=== PATIENT | male | born 1950 | race Caucasian/White ===

== ENCOUNTER → 2023-01-01 | Outpatient (CLI) | payer MEDICARE, OTHER, SELFPAY ==
--- NOTE | 2023-01-01 16:01 | US_ITS ---
EXAM: US ABDOMEN COMPLETE CLINICAL INDICATION: URINARY FREQUENCY TECHNIQUE: Real-time ultrasound of the abdomen with image documentation. This report was created using [employer] report generation technology. COMPARISON: None. FINDINGS: Bladder is incompletely distended measuring 75 mL with a post void residual of 7 mL. Bladder wall is top normal measuring 5 mm in the decompressed state. No intraluminal masses. No calculi. No gaspar catheter in place. US/Post Void Residual Bladder IMPRESSION: Decompressed bladder limiting assessment with no wall thickening or other abnormalities. Minimal postvoid residual. Electronically Signed: José Miguel Tee MD at 21:43 EST ,
== END | disposition home or self-care (01) ==
LOC: US 15:58
PROVIDERS: PCP Physician Assistant; Visit Provider Urology
DX: R35.0 Frequency of micturition (principal)
CPT/HCPCS: 51798